=== PATIENT | male | born 1950 | race Caucasian/White ===

== ENCOUNTER 2019-01-15 10:50 | Outpatient (CLI) | payer MEDICARE, OTHER ==
[~2019-01-15 10:50] MED LIST: AMLO5TAB9 PO; ATOR10TA PO; CITA40TA11 PO; CLON0.5T23 PO; LEVE500T9 PO; LISI2.5T2 PO; ROSU10TA2 PO; TAMS0.4C34 PO; TRAM50TA PO; ZOLP10TA6 PO
== END 2019-01-15 23:59 | disposition home or self-care (01) ==
LOC: WOU 10:50
PROVIDERS: ATTEND Podiatrist Foot & Ankle Surgery
DX: S81.811A Laceration without foreign body, right lower leg, initial encounter (principal); W22.03XA Walked into furniture, initial encounter; Y92.89 Other specified places as the place of occurrence of the external cause; L03.115 Cellulitis of right lower limb
CPT/HCPCS: 11042

== ENCOUNTER 2019-01-22 10:25 | Outpatient (CLI) | payer MEDICARE, OTHER | END 2019-01-22 23:59 | disposition home or self-care (01) | LOC: WOU 10:25 | PROVIDERS: ATTEND Podiatrist Foot & Ankle Surgery | DX: S81.811D Laceration without foreign body, right lower leg, subsequent encounter (principal); W22.03XD Walked into furniture, subsequent encounter | CPT/HCPCS: G0463 ==